=== PATIENT | male | born 1950 | race Caucasian/White ===

== ENCOUNTER 2025-04-30 14:04 | Outpatient (AMB) | payer MEDICARE, SELFPAY ==
--- NOTE | 2025-04-30 14:06 | A.OFFVIS_ITS ---
Vital Signs 04/30/25 14:07 Height 6 ft 1 in Weight 222 lb 10.67 oz BMI 29.4 BP 114/68 Blood Pressure Location Rt brachial Position Sitting Pulse 67 Pulse Source Pulse Oximeter Pulse Oximetry (%) 96 Oxygen Delivery Method Room Air Intake Visit Reasons: Hypercalcemia Intake Note: New patient present today for Hypercalcemia. Rustic Fence Builder Required: No Accompanied by: Self / Same As Patient Allergies No Known Allergies Allergy (Verified 04/30/25 14:11) Medication List - Last Reconciled 04/30/25 by Tim Chaves MD amlodipine 5 mg PO DAILY aspirin 81 mg PO DAILY levothyroxine 137 mcg PO DAILY lisinopril 10 mg PO DAILY mecobalamin (vitamin B12) 1,000 mcg PO DAILY oxycodone 5 mg PO Q6H PRN rosuvastatin 40 mg PO DAILY HPI Comments Details: 74 YO M who is seen in consultation at the request of PCP for PTH- mediated Hypercalcemia. First noted to have high calcium 3 mos ago . Not Currently using Calcium supplement .Not Takes of Vitamin D daily. Not Currently using HCTZ. Kidney stones: No Osteoporosis: No History of Mcdade use: No Biotin use: No Family history of high calcium or kidney stones: No Renal imaging: No DXA:2 yrs ago- no osteoporosis Labs: [facility] Medical History (Updated 04/30/25 @ 14:10 by Tim Chaves MD) Hypercalcemia Surgical History (Updated 04/30/25 @ 14:14 by ANASTACIA Whitney) Hx of coronary artery bypass graft Family History (Updated 04/30/25 @ 14:13 by ANASTACIA Whitney) Father No problems noted. Mother Heart disease Social History (Updated 04/30/25 @ 14:12 by ANASTACIA Whitney) Alcohol intake: current Alcohol intake frequency: holidays/special occasions only Patient Tobacco Use Status: Never used Tobacco Physical Exam Vital Signs: Last Vital Signs Pulse 67 04/30/25 14:07 BP 114/68 12/22/25 14:07 Pulse Ox 96 04/30/25 14:07 Oxygen Delivery Method Room Air 04/30/25 14:07 BMI result Body Mass Index 29.4 There are no Cushingoid features. Neck exam shows nl thyroid about 15 gms. Lungs CTA. Heart S1 S2 Reg R/R -MRG. Abdomina exam benign . Muscle strength 5/5 proximally. No hirsuitism present. No striae present. Skin exam without lesion Assessment & Plan Assessment & Plan (1) Hypercalcemia: Code(s): E83.52 - Hypercalcemia Category: Medical Plan: This 74-year-old white male with a history of hypercalcemia PTH-mediated most likely due to primary hyperparathyroidism. Unlikely to be FHH. We will check 24 hour urine for calcium and creatinine along with serum calcium, albumin, 25- D and creatinine to rule out FHH. Assuming consistent with primary hyperparathyroidism, we will talk with the patient about potential parathyroidectomy considering degree of hypercalcemia. Referral made to Dr. Hernandez for possible parathyroidectomy the patient returned after appointment for follow up visit Orders: Orders Creatinine, 24 Hr Group 4 Weeks E83.52 - Hypercalcemia Calcium 4 Weeks E83.52 - Hypercalcemia Vitamin D 25-OH Total 4 Weeks E83.52 - Hypercalcemia Calcium, 24 Hr Ur 4 Weeks E83.52 - Hypercalcemia Albumin Level 4 Weeks E83.52 - Hypercalcemia Parathyroid Hormone Intact 4 Weeks E83.52 - Hypercalcemia Referrals General Surgery Referral E83.52 - Hypercalcemia Coding Level of Care Code New Pt Level 4 (41652) Diagnoses Hypercalcemia E83.52
[2025-04-30 14:07] VITALS: BP 114/68; PULSE 67; O2SAT 96; BMI 29.4
--- OUTSIDE RECORDS SUMMARY | 2025-04-30 17:31 | XMS_ITS | Encounter Summary ---
Author Organization [facility] Address [address] [place] [address] Phone Care Team Providers Care Parts Facilitator Name Role Phone Len Dinh MD Primary Care Provider [phone] Len Dinh MD Primary Care Provider [phone] Len Dinh MD Primary Care Provider [phone] Encounter Details Date Type Department Care Team (Latest Contact Info) Description 07/12/2017 Transcribe Orders [facility] Non-Invasic Cardiology [address] [place] [address] Daniel Laughlin MD [address] [place] [address] [email or web address] History of coronary artery bypass graft (Primary Dx) Social History Tobacco Use Types Packs/Day Years Used Date Smoking Tobacco: Never Assessed Sex and Gender Information Value Date Recorded Sex Assigned at Not on file Legal Sex Male 10:02 PM EDT Gender Identity Choose not to disclose 9:38 AM EST Sexual Orientation Choose not to disclose 2017 9:38 AM EST documented as of this encounter Plan of Treatment Upcoming Encounters Date Type Department Care Team (Late st Contact Info) Description 05/21/2025 8:00 AM EST Office Visit [facility] [address] [place] [address] 3rd Floor, [address] [place] [address] Bj Luis MD [address], [address] [place] [address] [email or web address] documented as of this encounter Results * ECG 12-LEAD (07/12/2017 10:37 AM EST) Ventricular Rate EKG/MIN 69 BPM [facility] Atrial Rate 69 BPM [facility] SD Interval 170 ms [facility] QRS Duration 78 ms [facility] QT Interval 370 ms [facility] QTC Interval 396 ms [facility] P [place] 21 degrees [facility] R Wave [place] 64 degrees [facility] T Wave [place] 200 degrees [facility] 07/12/2017 10:3 7 AM EST 07/12/2017 1:39 PM EST Narrative [facility] - 07/12/2017 1:39 PM EST Sinus rhythm with occasional Premature ventricular complexes T wave abnormality, consider anterolateral ischemia Abnormal ECG When compared with ECG of 29-MAR-2017 16:17, T wave inversion now evident in Inferior leads T wave inversion now evident in Anterolateral leads Confirmed by ALBERT BENOIT MD ([id number]) on 07/12/2017 1:39:49 PM us Daniel Laughlin MD ECG ORDERABLES Final Res ult [facility] documented in this encounter Visit Diagnoses Diagnosis History of coronary artery bypass graft Postsurgical aortocoronary bypass status History of coronary artery bypass graft- Primary Postsurgical aortocoronary bypass status documented in this encounter Care Teams Parts Facilitator Relationship Specialty Start Date End Date Len Dinh MD PCP - General Internal Medicine 04/09/17 11/14/20 Len Dinh MD PCP - General Internal Medicine 11/15/20 02/07/23 Len Dinh MD [address] [place] [phone] [email or web address] PCP - General Internal Medicine 02/08/23 documented as of this encounter Additional Source Comments The information contained in this document represents components of the legal health record. It is not the complete legal health record.[facility]
--- OUTSIDE RECORDS SUMMARY | 2025-04-30 17:31 | XMS_ITS | Encounter Summary ---
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, unspecified vessel or lesion type, unspecified whether [place] or transplanted heart (Primary Dx) Social History Tobacco Use Types Packs/Day Years Used Date Smoking Tobacco: Never Assessed Sex and Gender Information Value Date Recorded Sex Assigned at Not on file Legal Sex Male 10:02 PM EDT Gender Identity Choose not to disclose 8 9:38 AM EST Sexual Orientation Choose not to disclose 2017 9:38 AM EST documented as of this encounter Plan of Treatment Upcoming Encounters Date Type Department Care Team (Late st Contact Info) Description 05/21/2025 8:00 AM EST Office Visit [facility] [address], [address] [place] [address] Bj Luis MD [address] [facility], [address] [place] [address] [email or web address] documented as of this encounter Results * TTE COMPREHENSIVE (11/26/2017 1:18 PM EDT) Body Surface Area 2.27 m2 Anatomical Region Laterality Modality Heart Ultrasound us Provider Not In System PhD CV ECHO ORDERABLES Fi nal Result documented in this encounter Visit Diagnoses Diagnosis 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, unspecified vessel or lesion type, unspecified whether [place] or transplanted heart- Primary documented in this encounter Care Teams Steel Construction Worker Relationship Specialty Start Date End Date Len Dinh MD [email or web address] PCP - General Internal Medicine 04/09/17 11/14/20 Len Dinh MD [email or web address] PCP - General Internal Medicine 11/15/20 02/07/23 Len Dinh MD [address] [place] [phone] [email or web address] PCP - General Internal Medicine 02/08/23 documented as of this encounter Additional Source Comments The information contained in this document represents components of the legal health record. It is not the complete legal health record.[facility]
--- OUTSIDE RECORDS SUMMARY | 2025-04-30 17:31 | XMS_ITS | Data Portability ---
Author Organization [place] [facility], Allergy Address [address] [address] Care Team Providers Care Lunch Counter Manager Name Role Phone SOFI DIETZ Referring Provider Assessment Encounter Date Assessment Date Assessment LastModified by Organization Details LastModified Time 01/12/2024 01/12/2024 On examination today there is a 2cm palpable mass at the tail of the left parotid gland. It is firm, but not tender. Overlying skin is normal. Case reviewed with . At this time the patient is not eager to proceed with surgery. We will plan on observation for now. He will see again in three months. Hopefully the inflammation will continue to settle down with time. If he experiences worsening swelling or pain he will call the office for a more urgent evaluation. [email or web address] Not available 01/12/2024 14:36:20 Plan of Treatment Reminders Order Date Submit Date Provider Last Modified By Organization Details Last Modified Time Details Appointments None recorded. Lab None recorded. Referral None recorded. Procedures None recorded. Surgeries None recorded. Imaging None recorded. Medication Orders prednisone 10 mg tablet 2023 024 [facility]/Pharmacy #[id number], [address] [place], [address], 14:16:25 amoxicillin 875 mg-potassiu m clavulanate 125 mg tablet 2023 024 [facility]/Pharmacy #[id number], [address] [place], [address], 13:56:53 Patient TargetsNo targets recorded. Patient InstructionsNo instructions recorded. Reason for Referral None Reported. Results Created Date Observation Date Name Description Value Unit Range Abnormal Flag Note LastModifiedBy Organization Detail LastModifiedTime 11/30/19 24 10/27/2023 US, neck, soft tissu e No observ ation record ed. [email or web address] Not Available 11/08 14:32:37 11/30/19 24 11/28/2023 CT, neck, soft tissu e, w/ contr ast No observ ation record ed. [email or web address] Not Available 11/08 14:36:48 12/07/19 24 11/05/2023 fine needl e aspir ation , ultra sound guide d, neck mass (PROC ) No observ ation record ed. [email or web address] Not Available 11/09 16:26:26 Result Notes None recorded. 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 Active 2023 DESIREE Iglesias MD [address] [place] [address], [phone], [facility] 4 14:05:04 Cervical lymphadenopath y 901512168 Active 2023 DESIREE Iglesias MD [address] [place] [address], [phone], [facility] 4 14:05:11 Abscess of parotid gland 572613510 Active 2023 DESIREE Iglesias MD [address] [place] [address], [phone], [facility] [place] 4 14:12:25 Problem Notes None recorded. Procedures Surgical History Date Name Laterality Status Provider Name and Address Organization Details Recorded Time 11/30/2023 FFL_RE completed DESIREE ALLEN MD [address] [place] [address], [phone], [facility] 11/30/2023 14:03:53 Imaging Results None recorded. Procedure Notes None recorded. Medical Equipment None Reported. Allergies No known drug allergies Medications Name Sig Start Date Stop Date Status Note LastModified by Organization Details LastModified Time prednisone 10 mg tablet TAKE 4 TABS BY MOUTH FOR 3 DAYS THEN 2 TABS DAILY FOR 3 DAYS THEN 1 TAB DAILY FOR 3 DAYS THEN STOP active Not Available Not Available No t Available lisinopril 20 mg tablet TAKE 1 TABLET BY MOUTH EVERY DAY active Not Available Not Available No t Available penicillin V potassium 500 mg tablet TAKE 1 TABLET BY MOUTH TWICE A DAY FOR 10 DAYS active Not Available Not Available No t Available oxycodone-a cetaminophe n 5 mg-325 mg tablet TAKE 1 TABLET BY MOUTH TWICE A DAY NEEDED FOR 7 DAYS active Not Available Not Available No t Available amlodipine 10 mg tablet TAKE 1 TABLET BY MOUTH EVERY DAY active Not Available Not Available No t Available levothyroxi ne 125 mcg tablet TAKE 1 TABLET BY MOUTH EVERY DAY active Not Available Not Available No t Available levothyroxi ne 150 mcg tablet TAKE 1 TABLET BY MOUTH EVERY DAY 01/11 completed Not Available Not Available Not Available gabapentin 300 mg capsule TAKE 1 CAPSULE BY MOUTH THREE TIMES A DAY FOR 90 DAYS active Not Available Not Available No t Available albuterol sulfate HFA 90 mcg/actuati on aerosol inhaler INHALE 2 PUFFS BY MOUTH 4 TIMES A DAY active Not Available Not Available No t Available clotrimazol e 1 % topical cream APPLY TO AFFECTED AREA AND SURROUNDI NG AREA TWICE A DAY IN THE MORNING AND IN THE EVENING active Not Available Not Available No t Available amoxicillin 875 mg-potassiu m clavulanate 125 mg tablet TAKE 1 TABLET BY MOUTH EVERY 12 HOURS 01/11 completed Not Available Not Available Not Available neomycin-po lymyxin-hyd rocort 3.5 mg-10,000 unit/mL-1 % ear drops,susp INSTILL 4 DROPS INTO AFFECTED EAR(S) 3 TIMES A DAY FOR 7 DAYS active Not Available Not Available No t Available rosuvastati n 40 mg tablet TAKE 1 TABLET BY MOUTH EVERY DAY active Not Available Not Available No t Available Vitals Date Recorded Body height Body mass index (BMI) Body weight Provider Name and Address Organization Details Last Updated DateTime 10/13/2024 185.42 cm 29.7 kg/m2 524902.28 g [place] [facility] 10/13/2024 07:55:41 Date Recorded Body height Body mass index (BMI) Body weight Provider Name and Address Organization Details Last Updated DateTime 11/30/2023 185.42 cm 29.8 kg/m2 312832.88 g [place] [facility] 11/30/2023 13:24:03 Date Recorded Body height Body mass index (BMI) Body weight Provider Name and Address Organization Details Last Updated DateTime 12/03/2023 185.42 cm 29.8 kg/m2 681219.88 nitish [place] [facility] 12/03/2023 10:22:45 Date Recorded Body height Body mass index (BMI) Body weight Provider Name and Address Organization Details Last Updated DateTime 01/12/2024 185.42 cm 29.7 kg/m2 642110.28 nitish Romanantonio [facility] 01/12/2024 13:56:40 Date Recorded Body height Body mass index (BMI) Body weight Provider Name and Address Organization Details Last Updated DateTime 04/10/2024 185.42 cm 29.7 kg/m2 189568.28 nitish Van Vallejo [facility] 04/10/2024 08:18:41 Social History None recorded. Functional Status None recorded. Mental Status None recorded. Family History Nothing Reported. Medical History No medical history recorded. 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 I will try to cool off with abx and prednisone and then reassess. Cervical lymphadenopathy 614995338 R59.0 He may have parotid adenopathy adjacent or a 2nd tumor. Abscess of parotid gland 699577824 K11.3 His Warthin's tumor is inflamed. He has not had a trial of abx and prednisone . I recommend a trial of abx and prednisone . If he doesn't improve I would plan an aspiration . I would like to reassess it when less inflamed. [id number] DESIREE ALLEN MD [facility] on [address] [place] [address], [place] [address] 12/03/2023 10:15:20 12/03/2023 13:57:32 Benign neoplasm of parotid gland 44356018 D11.0 clinically improving. continue abx and prednisone . Cervical lymphadenopathy 513669418 R59.0 He may have parotid adenopathy adjacent or a 2nd tumor. Abscess of parotid gland 380017228 K11.3 improving. 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 We again discussed surgery vs. observatio n and he prefers observatio n. On exam it is small and seems to have behavior consistent with a Warthin's tumor. So we will continue to observe. I asked them to call if it grows or becomes painful. [id number] DESIREE ALLEN MD [facility] on [address] [place] [address] [place] [address] 10/13/2024 07:50:58 10/13/2024 08:13:10 Benign neoplasm of parotid gland 36449126 D11.0 I can no longer palpate a tumor. I expect it is still present, however, it is collapsed. I asked him to call me if he develops any swelling. We discussed the option of interval imaging to assess however we agreed on observatio n and I will recheck and examine him in 6 months. He will call me in the interim if any changes. Health Concerns Section Related Observation LastModified by Organization Detai ls LastModified Time None Recorded Concern Status LastModified by Organization Details LastModified Time None Recorded Advance Directives Directive None Recorded Payers Insurance Date Sequence Insurance Name Policy Number Policy Desai Covered Member ID Desai Member ID Guarantor Name 10/13/2024 2 [facility] [id number] 01 Sumit Silverman [id number] Sumit Silverman 11/30/2023 1 [facility] Sumit Silverman [id number] Sumit Silverman 10/13/2024 1 MEDICARE B-[place]: [facility] [employer] Sumit Silverman [id number] Sumit Silverman Notes Date Note Type Note Provider Name and Address Organization Details Recorded Time 11/30/2023 text/html ROS as noted in the HPI He had bronchitis in the end of September. In the beginning of October he noted a left parotid mass. It got smaller but has since gotten bigger. He has not been on abx. His mass has enlarged and become painful. The pain worsened last about 4-5 days ago. He is taking ibuprofen. Quit smoking [place] 1993. CT neck with contrast 11/28/23 showed a 3.2x2.7 complex lesion within the left parotid with peripheral enhancement. An additional 1.8x1.1 cm lesion along eh superior left parotid was also noted abutting the mandibular condyle. Had an FNA which was consistent with a Warthin's tumor. He has had chills. DESIREE ALLEN MD [address] [place] [address], [phone], [facility] 11/30/2023 14:16:52 12/03/2023 text/html ROS as noted in the HPI He had bronchitis in the end of September. In the beginning of October he noted a left parotid mass. It got smaller but has since gotten bigger. He has not been on abx. His mass has enlarged and become painful. The pain worsened last about 4-5 days ago. He is taking ibuprofen. Quit smoking [place] 1993. CT neck with contrast 11/28/23 showed a 3.2x2.7 complex lesion within the left parotid with peripheral enhancement. An additional 1.8x1.1 cm lesion along eh superior left parotid was also noted abutting the mandibular condyle. Had an FNA which was consistent with a Warthin's tumor. He has had chills. Since the last visit the mass is slightly less painful. DESIREE ALLEN MD [address] [facility],[address], [address], [place] - [facility] 12/03/2023 12:59:54 01/12/2024 text/html ROS as noted in the [facility] 73 year old male presents today for follow up for a left parotid mass.He was seen by about six weeks ago. He was treated with antibiotics and prednisone. At his follow up three days later he was improving. He continues to report that the swelling has decreased. There is no longer any pain. Past visit history: In the beginning of October he noted a left parotid mass. It got smaller but has since gotten bigger. He has not been on abx. His mass has enlarged and become painful. The pain worsened last about 4-5 days ago. He is taking ibuprofen. Quit smoking [place] 1993. CT neck with contrast 11/28/23 showed a 3.2x2.7 complex lesion within the left parotid with peripheral enhancement. An additional 1.8x1.1 cm lesion along eh superior left parotid was also noted abutting the mandibular condyle. Had an FNA which was consistent with a Warthin's tumor. DESIREE ALLEN MD [address] [facility],[address], [address], [facility] - [facility] 01/13/2024 08:46:07 04/10/2024 text/html ROS as noted in the [facility] 73 year old male presents today for follow up for a left parotid mass. It became inflamed/infected after an FNA in November. It resolved with antibiotics and prednisone. He reports the mass is much smaller now but may have increased in size since it subsided. Quit smoking in 1993. CT neck with contrast 11/28/23 showed a 3.2x2.7 complex lesion within the left parotid with peripheral enhancement. An additional 1.8x1.1 cm lesion along eh superior left parotid was also noted abutting the mandibular condyle. Had an FNA which was consistent with a Warthin's tumor. DESIREE ALLEN MD [facility] [place] [address], [address], [place] - [facility] 04/10/2024 08:37:14 10/13/2024 text/html ROS as noted in the HPI 73 year old male presents today for follow up for a left parotid mass. It became inflamed/infected after an FNA in November 2023. Quit smoking [place] 1993. CT neck with contrast 11/28/23 showed a 3.2x2.7 complex lesion within the left parotid with peripheral enhancement. An additional 1.8x1.1 cm lesion along eh superior left parotid was also noted abutting the mandibular condyle. Had an FNA which was consistent with a Warthin's tumor. Since the last visit (last April after the last visit) it began draining spontaneously. His expressed a lot of liquid. Now he can no longer palpate it. Denies pain. DESIREE ALLEN MD [address] [place] [address], [place], [phone], [place] - [facility] 10/13/2024 08:14:57
--- OUTSIDE RECORDS SUMMARY | 2025-04-30 17:31 | XMS_ITS | Encounter Summary ---
Author Organization [facility] Address [address] [place] [address] Phone Care Team Providers Care Weatherization Installer Name Role Phone Len Dinh MD Primary Care Provider [phone] Len Dinh MD Primary Care Provider [phone] Len Dinh MD Primary Care Provider [phone] Reason for Referral * Consultation (Elective) - Closed Specialty Diagnoses / Procedures Referred By Contac t Referred To Contact Cardiac Rehabilitation Diagnoses History of coronary artery bypass graft x 3 Yary Neal NP [address] [place] [address] Phone: tel: fax: [facility] [address] [place] [address] Phone: tel: Referral ID Status Reason Start Date Expiration Date Visits Re quested Visits Authorized [id number] Closed 06/29/2017 06/29/2018 99 99 Encounter Details Date Type Department Care Team (Late st Contact Info) Description 06/29/2017 Transcribe Orders Virtual Department [address] [place] [address] Yary Neal NP [address] [place] [address] History of coronary artery bypass graft x 3 (Primary Dx) Social History Tobacco Use Types [...] Description 05/21/2025 8:00 AM EST Office Visit [facility] [address] Floor, [address] [place] [address] Bj Luis MD [address], [address] [place] [address] [email or web address] Scheduled Referrals Name Type Priority Associated Diagnoses Order Schedule Ambulatory referral to [facility] Cardiac Rehab Outpatient Referral Routine History of coronary artery bypass graft x 3 Ordered: 06/29/2017 documented as of this encounter Visit Diagnoses Diagnosis History of coronary artery bypass graft x 3- Primary documented in this encounter Care Teams Weatherization Installer Relationship Specialty Start Date End Date Len Dinh MD [email or web address] PCP - General Internal Medicine 04/09/17 11/14/20 Len Dinh MD [email or web address] PCP - General Internal Medicine 11/15/20 02/07/23 Len Dinh MD [address] [place] [phone] [email or web address] PCP - General Internal Medicine 02/08/23 documented as of this encounter Additional Source Comments The information contained in this document represents components of the legal health record. It is not the complete legal health record.[facility]
--- OUTSIDE RECORDS SUMMARY | 2025-04-30 17:31 | XMS_ITS | Clinical Summary ---
Author Organization [facility] Address [address] [place] [address] Phone Care Team Providers Care Auto Suspension And Steering Mechanic Name Role Phone Len Dinh MD Primary Care Provider [phone] Allergies No known active allergies Medications aspirin 81 mg chewable tablet Acti ve rosuvastatin (CRESTOR) 40 MG tablet Take 40 mg by mouth daily. Active levothyroxine (SYNTHROID, LEVOTHROID) 150 MCG tablet Take 137 mcg by mouth daily. 3 11/02/2018 Active nitroglycerin (NITROSTAT) 0.[address] 1 TABLET UNDER THE TONGUE NEEDED AT FIRST SIGN OF CHEST PAIN. SEPTEMBER REPEAT X 2 CALL 911 05/21/2020 Active acetaminophen (TYLENOL) 500 MG tablet Take 1,000 mg by mouth every 6 (six) hours as needed. Active amLODIPine (NORVASC) 10 MG tabletIndicatio ns:Medication refill TAKE 1 TABLET BY MOUTH EVERY DAY 90 tablet 3 07/09/2021 Active oxyCODONE-aceta minophen (PERCOCET) 5-325 mg per tablet Take 1 tablet by mouth 2 (two) times a day. 09/11/2022 Active lisinopril (PRINIVIL,ZESTR IL) 20 MG tablet Take 20 mg by mouth every morning. 08/15/2023 Active albuterol 90 mcg/actuation inhaler INHALE 2 PUFFS BY MOUTH 4 TIMES A DAY Active gabapentin (NEURONTIN) 300 MG capsule TAKE 1 CAPSULE BY MOUTH THREE TIMES A DAY FOR 90 DAYS Active Active Problems Problem Noted Date Diagnosed Date Mixed hyperlipidemia 10/12/2022 Assessment & Plan (11/17/2024 9:29 AM EDT): Continue rosuvastatin 40 mg daily. Assessment & Plan (09/24/2023 7:54 AM EDT): Continue rosuvastatin 40 mg daily. Assessment & Plan (10/12/2022 3:51 PM EDT): He will continue to take his Crestor. He will have a lipid panel drawn before his next follow-up. Atherosclerosis of [place] ronary artery of [place] heart without angina pectoris 08/06/2017 Assessment & Plan (11/17/2024 9:28 AM EDT): Continues to be asymptomatic. We will continue to optimize cardiac risk factors. He will remain on aspirin 81 mg daily lifelong, amlodipine 10 mg daily, lisinopril 20 mg daily and rosuvastatin 40 mg daily. SBP goal less than 130/80. LDL goal less than 55 mg/dL. PCP is following lipid panel. He is encouraged follow heart healthy diet including low-sodium and exercise. Assessment & Plan (09/24/2023 7:54 AM EDT): He reports he is asymptomatic from her coronary standpoint. He was noted to be bradycardic in the 40s during one of his visits and his metoprolol was reduced to metoprolol 25 mg daily. He will remain out of the medications aspirin milligrams daily, amlodipine 20 mg daily, lisinopril 10 mg daily. Will continue to optimize cardiac risk factors. He does report fatigue but he contributes this to his arthritis. Is unclear if PCP is following lipid panel however did order lipid panel today in case his PCP is not monitoring his cholesterol. He is on rosuvastatin 40 mg daily which she will continue. Assessment & Plan (02/08/2023 1:34 PM EDT): Continues to be asymptomatic from coronary artery standpoint. His bradycardia has improved on the reduced dose of metoprolol. His heart rate today is 80 bpm. He will continue taking his metoprolol 25 mg daily. He is also on aspirin 81 mg daily, simvastatin 40 mg daily. [facility] his [facility]. Assessment & Plan (10/12/2022 3:50 PM EDT): History of coronary artery disease and had bypass surgery in 2018. He is feeling well with no symptoms which are suggestive of ischemia. We will continue to optimize his risk factors. Blood pressure in the office today is adequately controlled. Of note, his EKG shows sinus bradycardia with a heart rate of 47. I suggested that he lower his metoprolol dosing. I prescribed metoprolol succinate 25 mg to be taken once daily. I would like to follow-up with him in 3 months to check on his blood pressure. Assessment & Plan (07/15/2021 9:47 AM EST): Denies any symptoms concerning for angina and heart failure today. We will continue to optimize his cardiovascular risk factors and to monitor for disease progression. No changes to his current cardiac regimen at this time. Assessment & Plan (05/23/2021 2:59 PM EST): Stenting to the LAD in 2004 and 2008, s/p CABG x3 who is here today for cardiac clearance. He denies any chest pain, shortness breath, potation, lightheadedness or syncopal spells. His exercise is pretty limited due to his ankle pain however he is able to walk more than 100 yards and climb stairs without chest pain or shortness of breath. He is an average risk patient for a low risk procedure per NSQIP. No further cardiac testing needed prior to surgery. Assessment & Plan (06/17/2020 2:31 PM EST): He has a history for coronary artery disease status post CABG x3, prior stenting of the LAD in 2004 and 2008. Is unable to locate recent lipid panel. We will also check his lipid panel along with a BMP today. He denies any current symptoms for CAD. Assessment & Plan (06/09/2019 12:26 PM EST): He is doing well no angina. I will have his last lipids but he was told it was good his LDL should be less than 70. Continue current medical therapy. If he needs ankle surgery done I am fine with him proceeding as planned. He remains intermediate risk but it is at most the low intermediate risk surgery. Assessment & Plan (05/27/2018 8:34 AM EST): Doing well now one year status post bypass surgery. No complaints of angina. I want his LDL checked and I want it less than 70. I put an order in for this. Otherwise I am happy with his medications at back and do some more regular exercise if he is walking daily. We talked about diet and weight loss. He will call me if he has any symptoms. I am happy to see him once a year. Assessment & Plan (11/26/2017 1:31 PM EDT): He is doing well since his bypass surgery. No angina and his ejection fraction is normal. Continue his regular activities. He is given a [facility] will have him check the lipids LDL goal should be less than 70 preferably less than 50. He will call us with the number of his mail order pharmacy so we can send in some refills. He will be on 25 mg twice a day. Assessment & Plan (08/06/2017 3:07 PM EDT): Stable, denies s/s of angina/CHF/arrhythmia. Doing well at cardiac rehab. --Cont ASA, Metoprolol 25 mg BID, and Crestor 40 mg daily. --Cont to check lipids periodically with PCP for goal LDL < 70. Hypertension 08/06/2017 Assessment & Plan (11/17/2024 9:28 AM EDT): Blood pressure is well-controlled today on current regimen no medication changes today. Assessment & Plan (09/24/2023 7:54 AM EDT): Blood pressure is controlled today 126/72. He is on amlodipine 10 mg daily, lisinopril 20 mg daily, Toprol 25 mg daily. He will continue his medication without change. He is encouraged follow heart healthy diet including low sodium and to continue exercising. Assessment & Plan (02/08/2023 1:34 PM EDT): His metoprolol was lowered during his last visit. He is tolerating this well with blood pressure well controlled less than 130/80. He is on amlodipine 10 mg daily, lisinopril 20 mg daily, Toprol 25 mg daily. He remains medications without change. He is encouraged to follow heart healthy diet including low sodium and to continue being active. Assessment & Plan (10/12/2022 3:50 PM EDT): See above plan. I have lowered his metoprolol for some bradycardia. I will have him follow-up in 3 months to check on his blood pressure. Assessment & Plan (07/15/2021 9:32 AM EST): Good control on current cardiac regimen. No changes indicated today. Patient advised to continue with low-salt diet and a active lifestyle. Monitor for extremes of highs and lows. Assessment & Plan (06/17/2020 2:30 PM EST): Initial blood pressure was recorded at 122/60. Patient describes checking blood pressures at home and has consistently gotten systolic blood pressures greater than 150. Blood pressure was rechecked for 148/100. He is on lisinopril 20 mg daily, metoprolol 50 mg twice daily. We will increase his lisinopril to 40 mg daily. He will come back for blood pressure check in 4 weeks. We also get a BMP today. Blood pressure goal systolic less 130/80. Assessment & Plan (08/06/2017 3:10 PM EDT): Elevated in the office today. Goal SBP < 130. Stable renal function and electrolytes. --Will resume Lisinopril 5 mg daily (previously on 10 mg) --Recommend periodic assessment of renal function and lytes with PCP --Will continue to monitor and reassess at next scheduled f/u. S/P CABG x 3 08/06/2017 Assessment & Plan (08/06/2017 3:08 PM EDT): EKG in the office today shows NSR HR 70 and diffuse TWI/F unchanged from last EKG, no acute ischemic changes. Ok to go back to work, no heavy lifting, nothing more than 20-30 lbs. --Will order echocardiogram 3 months s/p CABG --Keep scheduled f/u with Dr. San. Family History Medical History Relation Comments Heart attack Mother Relation Status Comments Mother Social History Tobacco Use Types Packs/Day Years Used Date Smoking Tobacco: Former Smokeless Tobacco: Never Tobacco Cessation:Counseling Given: Not Answered Alcohol Use Standard Drinks/Week Comments Yes 0 (1 standard drink = 0.6 oz pur e alcohol) Education Answer Date Recorded Are you interested in more education? Not on dheeraj e 09/04/2022 Are you concerned about learning? Not on file 09/04/2022 No 09/04/2022 No 09/04/2022 Digital Access Answer Date Recorded No 10/03/2022 No 10/03/2022 Reliable internet access at home? Not on file 10/03/2022 Device with a working camera? Not on file Intimate Partner Violence Answer Date R ecorded Are you denied basic needs s uch as food, clothing, or medical care? No 11/28/2023 In the past 12 months have y ou been in a relationship with a person who hurts, threatens, or tries to control you? No 11/28/2023 Are you denied basic needs s uch as food, clothing, or medical care? No 11/28/2023 In the past 12 months have y ou been in a relationship with a person who hurts, threatens, or tries to control you? No 11/28/2023 Sex and Gender Information Value Date Recorded Sex Assigned at Not on file Legal Sex Male 10:02 PM EDT Gender Identity Choose not to disclose 8 9:38 AM EST Sexual Orientation Choose not to disclose 2017 9:38 AM EST Last Filed Vital Signs Vital Sign Reading Time Taken Comments Blood Pressure 116/68 11/17/2024 9:01 AM EDT Pulse 57 11/17/2024 9:01 AM EDT Temperature 36.7 C (98.1 F) 11/28/2023 11:26 PM EDT Respiratory Rate 16 11/28/2023 11:26 PM EDT Oxygen Saturation 95% 11/17/2024 9:01 AM EDT Inhaled Oxygen Concentration - - Weight 102.1 kg (225 lb) 11/17/2024 9:01 AM EDT Height 185.4 cm (6' 0.99 ) 11/17/2024 9:01 AM ED T Body Mass Index 29.69 11/17/2024 9:01 AM EDT Plan of Treatment Upcoming Encounters Date Type Department Care Team (Late st Contact Info) Description 05/21/2025 8:00 AM EST Office Visit [facility] [address], [address] [place] [address] Bj Luis MD [address], [address] [place] [address] [email or web address] Due Date Last Done Comments TSH LEVEL 1949 DEPRESSION SCREENING 1961 SMOKING Hx and SMOKELESS TOBACCO SCREENING 1962 HEPATITIS C SCREENING 10/29/1967 COLOGUARD 1994 FIT TEST 1994 FOBT 1994 SIGMOIDOSCOPY 1994 VIRTUAL COLONOSCOPY 1994 ZOSTER VACCINES (2 of 3) 05/19/2013 03/24/2013 CREATININE LEVEL 06/17/2021 06/17/2020, 03/29/2017 POTASSIUM LEVEL 06/17/2021 06/17/2020, 03/29/2017 RSV VACCINE (1 - 1-dose 75+ series) 2024 INFLUENZA VACCINE (#1) 2024 , 03/08/2020, 02/27/2019, Additional history exists COVID-19 VACCINE ( season) 2025 03/21/2021, 07/28/2020, 07/20/2020, Additional history exists BLOOD PRESSURE 05/20/2025 11/17/2024 COLONOSCOPY 06/01/2027 06/22/2022 COLORECTAL CANCER SCREENING 06/01/2027 Adult Td,Tdap Booster 12/21/2029 12/22/2019 , 03/24/2013, 10/09/2007 PNEUMOCOCCAL VACCINES (50+ years) Completed 12/22/2019, 12/02/2016, 10/02/2015, Additional history exists HEPATITIS A VACCINES Aged Out No long er eligible based on patient's age to complete this topic HIB VACCINES Aged Out No longer eligi ble based on patient's age to complete this topic MENINGOCOCCAL VACCINES (ACWY) Aged Out No longer eligible based on patient's age to complete this topic MENINGOCOCCAL VACCINES (B) Aged Out N o longer eligible based on patient's age to complete this topic Medical Devices Not on file Procedures Procedure Name Priority Date/Time Associated Diagnosis Comments COLONOSCOPY FOR RESULT ENTRY ONLY Routine 06/22/2022 BASIC METABOLIC PANEL (BMP) Routine 06/17/2020 2:18 PM EST Essential hypertension from Last 3 Months or Most Recently Relevant to Health Maintenance Results * COLONOSCOPY FOR RESULT ENTRY ONLY (06/22/2022) Colonoscopy External us Historical Provider MD HEALTH MAINTENANCE Final Result * (ABNORMAL) Basic metabolic panel (06/17/2020 2:18 PM EST) SODIUM 142 133 - 146 mmol/L [facility] CHLORIDE 106 96 - 108 mmol/L [facility] POTASSIUM 4.8 3.3 - 5.1 mmol/L [facility] CO2 29 21 - 35 mmol/L [facility] BUN 16 6 - 19 mg/dL [facility] CREATININE 0.90 0.5 - 1.5 mg/dL [facility] GLUCOSE 110(H) 70 - 99 mg/dL [facility] CALCIUM 10.9(H) 8.4 - 10.3 mg/dL [facility] EGFR 86 >59 mL/min/1.7 3m2 [facility] Comment:Estimated glomerular filtration rate calculated using the CKD-EPI equation. ANION GAP 12 10 - 20 mmol/L [facility] Blood 06/17/2020 2:18 PM EST 06/17/2020 2:20 PM EST us Richelle Chao DNP LAB BLOOD BKR ORDERABLES F inal Result [facility] [address] [place] [address] from Last 3 Months or Most Recently Relevant to Health Maintenance Insurance MEDICARE PART A & B Member Subscriber Plan / Payer (Ef fective 2022-) Name:Sumit Silverman Member ID:[id number] Relation to Subscriber:Self Name:Brett Silvermany Subscriber ID:[id number] Payer ID:[id number] Group ID:Not on file Type:Medicare Address: [employer] [address] [place] [phone] [facility] MEDICARE SUPPLEMENT MEDICARE PART A & B [facility] MEDICARE SUPPLEMENT MEDICARE PART A & B MEDICARE SUPPLEMENT MEDICARE PART A & [place] [address] [place] [address] MEDICARE SUPPLEMENT MEDICARE PART A & B Member Subscriber Plan / Payer (Ef fective 2022-) Name:Sumit Silverman Member ID:[id number] Relation to Subscriber:Self Name:Sumit Silverman Subscriber ID:[id number] Payer ID:[id number] Group ID:Not on file Type:Medicare [facility] [id number] [facility] MEDICARE SUPPLEMENT MEDICARE PART A & B [facility] MEDICARE SUPPLEMENT Care Teams Auto Suspension And Steering Mechanic Relationship Specialty Start Date End Date Len Dinh MD [address] [place] [phone] [email or web address] PCP - General Internal Medicine 02/08/23 Additional Source Comments The information contained in this document represents components of the legal health record. It is not the complete legal health record.[facility]
--- OUTSIDE RECORDS SUMMARY | 2025-04-30 17:31 | XMS_ITS | Clinical Summary ---
Author Organization [facility] Address [address] [place] [address] Care Team Providers Care Mechanic General Operational Test Name Role Phone Len Dinh MD Primary Care Provider [phone] Daniel Marsh DO Unavailable [phone] Bam Lozano MD Unavailable [phone] Allergies No known active allergies Medications levothyroxine (SYNTHROID, LEVOTHROID) 50 MCG tablet Take 50 mcg by mouth every morning. Active metoPROLOL TARTRATE (LOPRESSOR) 50 MG tablet Take 50 mg by mouth 2 (two) times a day. Active lisinopril (PRINIVIL,ZeSTR IL) 40 MG tablet Take 40 mg by mouth every morning. Active rosuvastatin (CRESTOR) 40 MG tablet Take 40 mg by mouth every morning. Active amLODIPine (NORVASC) 10 MG tablet Take 10 mg by mouth every evening. Active cholecalciferol (VITAMIN D3) 1000 units capsule Take 1,000 Units by mouth 2 (two) times a day. Active acetaminophen (TYLENOL) 500 MG tablet Take 1,000 mg by mouth 4 times daily (every 6 hours) as needed for mild pain. Active nitroglycerin (NITROSTAT) 0.[address] 0.4 mg under the tongue every 5 (five) minutes as needed for chest pain. Active Active Problems Problem Noted Date Diagnosed Date Hypertension Coronary artery disease Hyperlipidemia Family History Medical History Relation Name Comments Alcohol abuse Brother 1 Diabetes Brother 2 Arthritis Brother 3 No Known Problems Daughter 1 No Known Problems Daughter 2 No Known Problems Father Heart attack Mother Heart disease Mother No Known Problems Son Relation Name Status Comments Brother 1 Brother 2 Brother 3 Alive Daughter 1 Alive Daughter 2 Alive Father Mother Son Alive Social History Tobacco Use Types Packs/Day Years Used Date Smoking Tobacco: Former Cigarettes 0.5 25 1 - 05/09/1993 Smokeless Tobacco: Never Alcohol Use Standard Drinks/Week Comments Yes 2 (1 standard drink = 0.6 oz pure alcohol) advised to stop 2 weeks prior to surgery Sex and Gender Information Value Date Recorded Sex Assigned at Not on file Legal Sex Male 12:42 PM EST Gender Identity Not on file Sexual Orientation Not on file Last Filed Vital Signs Vital Sign Reading Time Taken Comments Blood Pressure 110/67 06/06/2021 3:00 PM EST Pulse 60 06/06/2021 3:00 PM EST Temperature 36.1 C (97 F) 06/06/2021 1:40 PM EST Respiratory Rate 18 06/06/2021 3:00 PM EST Oxygen Saturation 95% 06/06/2021 3:00 PM EST Inhaled Oxygen Concentration - - Weight 103 kg (226 lb) 05/23/2021 7:46 AM EST Height 185.4 cm (6' 1 ) 05/23/2021 7:46 AM EST Body Mass Index 29.82 05/23/2021 7:46 AM EST Plan of Treatment Health Maintenance Due Date Last Done Comments Advance Care Planning 1950 Hepatitis C Virus Screening 1950 DTaP/Tdap/Td Vaccines (1 - Tdap) 1968 Pneumococcal Vaccines 50+ (1 of 1 - PCV) 10/29/1999 Zoster (Shingles) Vaccine (1 of 2) 10/29/1999 RSV Vaccine 50 years and old er and Patients (1 - 1-dose 75+ series) 2024 COVID-19 Vaccine ( - 2024-2 6 season) 2025 Hepatitis B Vaccines Aged Out No long er eligible based on patient's age to complete this topic Medical Devices Implanted Type Area Immigration Inspector Device Identifier Shelf Expiration Date Model / Serial / Lot Tn Plate Implanted:Qty : 1 on 06/06/2021 by Bam Lozano MD at [facility] Plate Right: Ankle [employer]NE [employer] - [id number] / / 4.0x55mm Screw Implanted:Qty : 1 on 06/06/2021 by Bam Lozano MD at [facility] Screw Right: Ankle [employer] - [id number] / / 7.0x80mm Screw Implanted:Qty : 2 on 06/06/2021 by Bam Lozano MD at [facility] Screw Right: Ankle [employer] - [id number] / / 7.0x95mm Screw Implanted:Qty : 1 on 06/06/2021 by Bam Lozano MD at [facility] Screw Right: Ankle [employer]NE [employer] - [id number] / / 3.5x30mm Nl Screw Implanted:Qty : 1 on 06/06/2021 by Bam Lozano MD at [facility] Screw Right: Ankle [employer] - [id number] / / 3.5x30mm Lock Screw Implanted:Qty : 3 on 06/06/2021 by Bam Lozano MD at [facility] Screw Right: Ankle [employer]NE [employer] - [id number] / / 3.5x38mm Nl Screw Implanted:Qty : 1 on 06/06/2021 by Bam Lozano MD at [facility] Screw Right: Ankle [employer]NE [employer] - [id number] / / 3.5x24mm Lock Screw Implanted:Qty : 1 on 06/06/2021 by Bam Lozano MD at [facility] Screw Right: Ankle [employer]NE [employer] - [id number] / / [id number] Staple Bone [id number] Fuseforce Hand 2mm Reamer Sterl - [id number] Implanted:Qty : 1 on 06/06/2021 by Bam Lozano MD at [facility] Staple Right: Ankle [employer] 10/29/2025 [id number] / / [id number] Kit Bone Graft 3cc Augment Injectable - [id number] Implanted:Qty : 1 on 06/06/2021 by Bam Lozano MD at [facility] Void Filler Right: Foot [employer] 09/06/2022 [id number] / / [id number] Filler Bone Void 5cc Dbx Algrf Putty Frzdr - [id number] Implanted:Qty : 1 on 06/06/2021 by Bam Lozano MD at [facility] Void Filler Right: Ankle [employer]PL[employer] FOU 02/04/2023 [id number] / [id number] / Bone Screw 3.5x34 Implanted:Qty : 1 on 06/06/2021 by Bam Lozano MD at [facility] Right: Ankle [employer]NE [employer] - [id number] / / Care Teams Mechanic General Operational Test Relationship Specialty Start Date End Date Len Dinh MD [address] [place] [phone] PCP - General Internal Medicine 05/14/21 Daniel Marsh DO [address] [place] [id number] Lining Layer Cardiovascular Disease 05/14/21 Bam Lozano MD [address] [place] [id number] Surgery, Orthopedic 05/16/21
--- OUTSIDE RECORDS SUMMARY | 2025-04-30 17:31 | XMS_ITS | Encounter Summary ---
Author Organization [facility] Address [address] [place] [address] Phone Care Team Providers Care Jelly Filter Tender Name Role Phone Len Dinh MD Primary Care Provider [phone] Len Dinh MD Primary Care Provider [phone] Len Dinh MD Primary Care Provider [phone] Encounter Details Date Type Department Care Team (Late st Contact Info) Description 04/09/2017 Ancillary Orders [facility] Non-Invasic Cardiology [address] [place] [address] Len Dinh MD [address] [place] [address] [email or web address] Chest pain, unspecified type Social History Tobacco Use Types Packs/Day Years [...] Description 05/21/2025 8:00 AM EST Office Visit [facility] [address] [place] [address] 3rd Floor, [address] [place] [address] Bj Luis MD 22 [facility], [address] [place], [place] [phone] [email or web address] documented as of this encounter Results * NC Stress Result for Nuclear Stress Test ([facility]) (04/09/2017 11:25 AM EST) Max BP Systolic 190 mmHg [facility] Max BP Diastolic 80 mmHg [facility] Max HR 137 BPM [facility] Resting HR 59 BPM [facility] Resting BP Systolic 150 mmHg [facility] Resting BP Diastolic 80 mmHg [facility] Peak METS 4.2 METS [facility] Peak HR 108 BPM [facility] Anatomical Region Laterality Modality Heart Other 04/09/2017 10:1 1 AM EST 04/09/2017 10:38 AM EST Narrative 04/09/2017 4:09 PM EST Stress Test Result The heart rate changed from 59 bpm at rest to 108 bpm at peak stress. The blood pressure changed from 150/80 mmHg at rest. The patient's functional capacity is 4.2 METS. Pt exercised for 5:01 minutes on a GILL protocol achieving 7 METS. Test terminated due to chest pain and dyspnea. Max heart rate 137 (89% MPHR). 1. Baseline EKG showed normal sinus rhythm. During exercise there were 2-3 mm horizontal to upsloping ST depressions in the inferolateral leads. EKGs back to baseline by 3 min into recovery. 2. Pt had 6/10 chest pain at peak exercise that resolved spontaneously by 4 minutes into recovery. 3. Normal BP response to exercise. Normal functional capacity for age. 4. Occasional PVCs and PACs throughout. Conclusion - abnormal stress test with EKG changes and chest pain concerning for ischemia. Nuclear images pending and will be reported separately. Dmitry Carlos FACILITY PLANNER with Dr Joshi us Len Dinh MD CV NM CARDIAC Final Result documented in this encounter Visit Diagnoses Diagnosis Chest pain, unspecified type Chest pain, unspecified type documented in this encounter Care Teams Jelly Filter Tender Relationship Specialty Start Date End Date Len Dinh MD [email or web address] PCP - General Internal Medicine 04/09/17 11/14/20 Len Dinh MD [email or web address] PCP - General Internal Medicine 11/15/20 02/07/23 Len Dinh MD [address] [place] [phone] [email or web address] PCP - General Internal Medicine 02/08/23 documented as of this encounter Additional Source Comments The information contained in this document represents components of the legal health record. It is not the complete legal health record.[facility]
--- OUTSIDE RECORDS SUMMARY | 2025-04-30 17:32 | XMS_ITS | Encounter Summary ---
Author Organization [facility] Address [address] [place] [address] Phone Care Team Providers Care Coding Validator Name Role Phone Len Dinh MD Primary Care Provider [phone] Len Dinh MD Primary Care Provider [phone] Len Dinh MD Primary Care Provider [phone] Encounter Details Date Type Department Care Team (Late st Contact Info) Description 04/09/2017 Ancillary Orders Virtual Department 30 [place] [address] Len Dinh MD 238 [place] [address] [email or web address] Social History Tobacco Use Types Packs/Day Years [...] Encounters Date Type Department Care Team (Late Contact Info) Description 05/21/2025 8:00 AM EST Office Visit [facility] [address] [place] [address] 3rd Floor, [address] [place] [address] Bj Luis MD 22 [facility] [place], [place] [facility] [address] [place] [address] [email or web address] documented as of this encounter Visit Diagnoses Not on filedocumented in this encounter Care Teams Coding Validator Relationship Specialty Start Date End Date Len Dinh MD [email or web address] PCP - General Internal Medicine 04/09/17 11/14/20 Len Dinh MD [email or web address] PCP - General Internal Medicine 11/15/20 02/07/23 Len Dinh MD [address] [place] [phone] [email or web address] PCP - General Internal Medicine 02/08/23 documented as of this encounter Additional Source Comments The information contained in this document represents components of the legal health record. It is not the complete legal health record.[facility]
--- OUTSIDE RECORDS SUMMARY | 2025-04-30 17:32 | XMS_ITS | Encounter Summary ---
Author Organization [facility] Address [address] [facility] [address] [place] [address] Phone Care Team Providers Care Courier Driver Name Role Phone Len Dinh MD Primary Care Provider [phone] Len Dinh MD Primary Care Provider [phone] Len Dinh MD Primary Care Provider [phone] Encounter Details Date Type Department Care Team (Late st Contact Info) Description 05/22/2020 Procedure Pass [facility], Ct Scan - [address] [address] Social History Tobacco Use Types Packs/Day Years Used Date Smoking Tobacco: Former Smokeless Tobacco: Never Alcohol Use Standard Drinks/Week Comments Yes 0 (1 standard drink = 0.6 oz pur e alcohol) Sex and Gender Information Value Date Recorded [...] Description 05/21/2025 8:00 AM EST Office Visit [facility] [address] [place] [address] 3rd Floor, [address] [place] [address] Bj Luis MD 22 [facility], [address] [place] [phone] documented as of this encounter Visit Diagnoses Not on filedocumented in this encounter Care Teams Courier Driver Relationship Specialty Start Date End Date Len Dinh MD [email or web address] PCP - General Internal Medicine 04/09/17 11/14/20 Len Dinh MD [email or web address] PCP - General Internal Medicine 11/15/20 02/07/23 Len Dinh MD [address] [place] [phone] [email or web address] PCP - General Internal Medicine 02/08/23 documented as of this encounter Additional Source Comments The information contained in this document represents components of the legal health record. It is not the complete legal health record.[facility]
--- OUTSIDE RECORDS SUMMARY | 2025-04-30 17:32 | XMS_ITS | Encounter Summary ---
Author Organization [facility] Address [address] [place] [address] Phone Care Team Providers Care Performance Improvement Analyst Name Role Phone Len Dinh MD Primary Care Provider [phone] Reason for Referral * MRI/CAT Scan - Closed Specialty Diagnoses / Procedures Referred By Contac t Referred To Contact Radiology Diagnoses Other abnormalities of gait and mobility Procedures CT Head Len Dinh MD [address] [place] [address] Phone: tel: fax: [email or web address] Referral ID Status Reason Start Date Expiration Date Visits Re quested Visits Authorized [id number] Closed 01/14/2024 01/13/2025 1 1 Encounter Details Date Type Department Care Team (Late st Contact Info) Description 01/14/2024 Transcribe Orders Virtual Department 30 [place] [address] Len Dinh MD [address] [place] [phone] [email or web address] Dysphagia, unspecified type (Primary Dx); Other abnormalities of gait and mobility Social History Tobacco Use Types Packs/Day Years [...] Description 05/21/2025 8:00 AM EST Office Visit [facility] [address] [place] [address] 3rd [facility], [address] [place] [address] Bj Luis MD [address] [place] [address] [email or web address] documented as of this encounter Results * FL (Speech) Video Swallow Study (04/03/2024 10:14 AM EST) Anatomical Region Laterality Modality Radio Fluoroscop y 04/03/2024 12:0 1 PM EST Impressions 04/03/2024 2:01 PM EST Laryngeal penetration with thin liquids without aspiration. Please refer to the clinical notes by the Speech Pathologist for detailed description of the Modified Swallow findings. FLUOROSCOPY TIME: 1 minute 14 seconds NUMBER OF IMAGES: [id number] Examination was performed by Doug LOJA, under direct supervision by Dr. Beena Wells. ATTESTATION: Beena Hicks as teaching physician, have reviewed the images for this case and if necessary edited the report originally created by Doug Peralta. Narrative 04/03/2024 2:01 PM EST FL MODIFIED BARIUM SWALLOW HISTORY:Dysphagia. COMPARISON:CT neck 11/28/2023. TECHNIQUE: Fluoroscopic assistance was provided for the speech pathologist during video swallow. The patient was observed in the lateral projection while being fed various consistencies of barium (thin liquids, applesauce, pudding and cracker). FINDINGS: The oral and pharyngeal stages of swallowing will be reported separately by the Department of Speech and Language Pathology. Laryngeal penetration with thin liquids without consuelo aspiration. No laryngeal penetration demonstrated with all other trialed barium consistencies. Cricopharyngeal bar is visualized without evidence of achalasia or a Zenker's diverticulum. No significant pharyngeal residue. Procedure Note Beena Wells MD - 04/03/2024 FL MODIFIED BARIUM SWALLOW HISTORY:Dysphagia. COMPARISON:CT neck 11/28/2023. TECHNIQUE: Fluoroscopic assistance was provided for the speech pathologist duringvideo swallow. The patient was observed in the lateral projection whilebeing fed various consistencies of barium (thin liquids, applesauce,pudding and cracker). FINDINGS: The oral and pharyngeal stages of swallowing will be reported separatelyby the Department of Speech and Language Pathology. Laryngeal penetration with thin liquids without consuelo aspiration. Nolaryngeal penetration demonstrated with all other trialed bariumconsistencies. Cricopharyngeal bar is visualized without evidence ofachalasia or a Zenker's diverticulum. No significant pharyngeal residue. IMPRESSION: Laryngeal penetration with thin liquids without aspiration. Please refer to the clinical notes by the Speech Pathologist for detaileddescription of the Modified Swallow findings. FLUOROSCOPY TIME: 1 minute 14 seconds NUMBER OF IMAGES: [id number] Examination was performed by Doug LOJA, under direct supervisionby Dr. Beena Wells. ATTESTATION: Beena Hicks as teaching physician, have reviewed theimages for this case and if necessary edited the report originally createdby Dogu Peralta. us Len Dinh MD IMG FL EXAMS Final Result * CT HEAD WITHOUT CONTRAST (03/03/2024 8:27 AM EDT) Anatomical Region Laterality Modality Head Computed Tomogra phy 03/03/2024 5:01 PM EDT Impressions 03/03/2024 5:06 PM EDT 1. No acute intracranial findings. Narrative 03/03/2024 5:[address] HEAD WITHOUT CONTRAST Referring clinician's provided indication for this examination in Epic: Outside Radiology Order; impairment of balance TECHNIQUE: Multidetector-row CT of the head was performed without intravenous contrast using tailored dose modulation techniques. Images were reconstructed in the axial, coronal, and sagittal planes. COMPARISON: None. FINDINGS: Brain Parenchyma: No midline shift, mass effect, parenchymal hemorrhage, or evidence of acute territorial infarct. There is a hypodensity in the left basal ganglia which may represent a large dilated perivascular space versus a chronic infarct. There are areas of hypodensity in the periventricular white matter, likely a manifestation of chronic small vessel disease. Ventricular System and Extra-Axial Spaces: There is mild generalized parenchymal volume loss. No hydrocephalus or midline shift. No extra-axial fluid collection. Osseous and Extracranial Structures: No significant paranasal sinus disease. No orbital abnormality. Bones and extracranial soft tissues are unremarkable. Procedure Note Xavi Martinez MD - 03/03/2024 CT HEAD WITHOUT CONTRAST Referring clinician's provided indication for this examination in Epic:Outside Radiology Order; impairment of balance TECHNIQUE: Multidetector-row CT of the head was performed withoutintravenous contrast using tailored dose modulation techniques. Imageswere reconstructed in the axial, coronal, and sagittal planes. COMPARISON: None. FINDINGS: Brain Parenchyma: No midline shift, mass effect, parenchymal hemorrhage,or evidence of acute territorial infarct. There is a hypodensity in theleft basal ganglia which may represent a large dilated perivascular spaceversus a chronic infarct. There are areas of hypodensity in theperiventricular white matter, likely a manifestation of chronic smallvessel disease. Ventricular System and Extra-Axial Spaces: There is mild generalizedparenchymal volume loss. No hydrocephalus or midline shift. No extra-axialfluid collection. Osseous and Extracranial Structures: No significant paranasal sinusdisease. No orbital abnormality. Bones and extracranial soft tissues areunremarkable. IMPRESSION: 1. No acute intracranial findings. Len Dinh MD IMG CT HEAD/NECK Final Result documented in this encounter Visit Diagnoses Diagnosis Dysphagia, unspecified type- Primary Other abnormalities of gait and mobility Other abnormalities of gait and mobility Dysphagia, unspecified type documented in this encounter Care Teams Performance Improvement Analyst Relationship Specialty Start Date End Date Len Dinh MD [address] [place] [phone] [email or web address] PCP - General Internal Medicine 02/08/23 documented as of this encounter Additional Source Comments The information contained in this document represents components of the legal health record. It is not the complete legal health record.[facility]
--- OUTSIDE RECORDS SUMMARY | 2025-04-30 17:32 | XMS_ITS | Encounter Summary ---
Author Organization [facility] Address [address] [place] [address] Phone Care Team Providers Care Health Technical Writer Name Role Phone Len Dinh MD Primary Care Provider [phone] Encounter Details Date Type Department Care Team (Late st Contact Info) Description 11/05/2023 Procedure Pass [facility] Interventional Radiology [address] [place] [address] Social History Tobacco Use Types Packs/Day Years [...] with a working camera? Not on file Sex and Gender Information Value Date Recorded [...] Description 05/21/2025 8:00 AM EST Office Visit [facility] [address] [facility] 3rd Floor, [address] [place] [address] Bj Luis MD 22 [facility], [address] [place] [address] [email or web address] documented as of this encounter Visit Diagnoses Not on filedocumented in this encounter Care Teams Health Technical Writer Relationship Specialty Start Date End Date Lne Dinh MD [address] [place] [phone] [email or web address] PCP - General Internal Medicine 02/08/23 documented as of this encounter Additional Source Comments The information contained in this document represents components of the legal health record. It is not the complete legal health record.[facility]
--- OUTSIDE RECORDS SUMMARY | 2025-04-30 17:32 | XMS_ITS | Encounter Summary ---
Author Organization [facility] Address [address] [place] [address] Phone Care Team Providers Care Lace Sewer Name Role Phone Len Dinh MD Primary Care Provider [phone] Encounter Details Date Type Department Care Team (Latest Contact Info) Description 10/11/2023 Ancillary Orders [facility], X-Ray - [facility] [address] [place] [address] Dimitrios Black, DO [address] [place] [address] [email or web address] Primary osteoarthritis of left hip (Primary Dx) Social History Tobacco Use Types [...] Description 05/21/2025 8:00 AM EST Office Visit [facility] [address] [facility] 3rd Floor, [address] [place] [address] Bj Luis MD 22 [facility], [address] [place] [address] [email or web address] documented as of this encounter Results * XR HIP 2 VW LEFT PLUS PELVIS (10/11/2023 3:24 PM EDT) Anatomical Region Laterality Modality Hip, Pelvis Computed Radiogr aphy 10/13/2023 2:12 PM EDT Impressions 10/13/2023 2:14 PM EDT Moderate to severe left and moderate right hip osteoarthritis. No significant change from 07/13/2022. Narrative 10/13/2023 2:14 PM EDT XR HIP 2 VW LEFT PLUS PELVIS Referring clinician's provided indication for this examination in Epic: Osteoarthritis REQUESTED INDICATION: Osteoarthritis COMPARISON: XR HIP 2 VW LEFT PLUS PELVIS FINDINGS: PELVIS: Pelvic ring intact. No displaced fracture. Degenerative changes of the lower lumbar spine, sacroiliac joints, and pubic symphysis. Gluteal enthesopathy at the iliac crests. Arteries calcified. Surgical clips overlying the pelvis. RIGHT HIP: Moderate hip joint space narrowing with subchondral sclerosis and bony proliferative change. LEFT HIP: Moderate to severe hip joint space narrowing with subchondral sclerosis and bony proliferative change. Soft tissue mineralization raises the possibility of chondrocalcinosis and CPPD arthropathy. Procedure Note Raissa Adame MD - 10/13/2023 XR HIP 2 VW LEFT PLUS PELVIS Referring clinician's provided indication for this examination in Epic:Osteoarthritis REQUESTED INDICATION: Osteoarthritis COMPARISON: XR HIP 2 VW LEFT PLUS PELVIS FINDINGS: PELVIS: Pelvic ring intact. No displaced fracture. Degenerative changes ofthe lower lumbar spine, sacroiliac joints, and pubic symphysis. Glutealenthesopathy at the iliac crests. Arteries calcified. Surgical clipsoverlying the pelvis. RIGHT HIP: Moderate hip joint space narrowing with subchondral sclerosisand bony proliferative change. LEFT HIP: Moderate to severe hip joint space narrowing with subchondralsclerosis and bony proliferative change. Soft tissue mineralization raisesthe possibility of chondrocalcinosis and CPPD arthropathy. IMPRESSION: Moderate to severe left and moderate right hip osteoarthritis. No significant change from 07/13/2022. us Dimitrios Black DO IMG XR PELVIS Final Result documented in this encounter Visit Diagnoses Diagnosis Primary osteoarthritis of left hip- Primary Primary osteoarthritis of left hip documented in this encounter Care Teams Lace Sewer Relationship Specialty Start Date End Date Len Dinh MD [address] [place] [phone] [email or web address] PCP - General Internal Medicine 02/08/23 documented as of this encounter Additional Source Comments The information contained in this document represents components of the legal health record. It is not the complete legal health record.[facility]
--- OUTSIDE RECORDS SUMMARY | 2025-04-30 17:32 | XMS_ITS | Encounter Summary ---
Author Organization [facility] Address [address] [facility] [address] [place] [address] Phone Care Team Providers Care Broomcorn Grader Name Role Phone Len Dinh MD Primary Care Provider [phone] Len Dinh MD Primary Care Provider [phone] Encounter Details Date Type Department Care Team (Late st Contact Info) Description 07/13/2022 Ancillary Orders [facility], X-Ray - [facility] [address] [place] [address] Dimitrios Black, DO [address] [place] [address] [email or web address] Radiculopathy, lumbar region; Pain in left hip Social History Tobacco Use Types Packs/Day Years [...] Description 05/21/2025 8:00 AM EST Office Visit [facility] [address] [place] [address] 3rd Floor, [address] [place] [address] Bj Luis MD [address] [place] [address], [address] [place] [address] [email or web address] documented as of this encounter Results * XR HIP 2 VW LEFT PLUS PELVIS (07/13/2022 4:39 PM EST) Anatomical Region Laterality Modality Hip, Pelvis Computed Radiogr aphy 07/14/2022 12:0 4 AM EST Impressions 07/14/2022 12:05 AM EST Moderate to severe left and moderate right hip osteoarthritis. Narrative 07/14/2022 12:05 AM EST XR HIP 2 VW LEFT PLUS PELVIS COMPARISON: Same day x-ray lumbar spine FINDINGS: PELVIS: Pelvic ring intact. No displaced fracture. Degenerative changes of the lower lumbar spine, sacroiliac joints, and pubic symphysis. Arteries calcified. RIGHT HIP: Moderate right hip joint space narrowing with subchondral sclerosis. LEFT HIP: Moderate to severe left hip joint space narrowing with subchondral sclerosis and bony proliferative change. Soft tissue mineralization raises the possibility of chondrocalcinosis. Procedure Note Raissa Adame MD - 07/14/2022 XR HIP 2 VW LEFT PLUS PELVIS COMPARISON: Same day x-ray lumbar spine FINDINGS: PELVIS: Pelvic ring intact. No displaced fracture. Degenerative changes ofthe lower lumbar spine, sacroiliac joints, and pubic symphysis. Arteriescalcified. RIGHT HIP: Moderate right hip joint space narrowing with subchondralsclerosis. LEFT HIP: Moderate to severe left hip joint space narrowing withsubchondral sclerosis and bony proliferative change. Soft tissuemineralization raises the possibility of chondrocalcinosis. IMPRESSION: Moderate to severe left and moderate right hip osteoarthritis. Dimitrios Black DO IMG XR PELVIS Final Result * XR LUMBOSACRAL SPINE 4 OR MORE VIEWS (07/13/2022 4:39 PM EST) Anatomical Region Laterality Modality L-spine Computed Radiogr aphy 07/14/2022 12:0 2 AM EST Impressions 07/14/2022 12:04 AM EST Moderate to severe multilevel lumbar spine degenerative change, most pronounced at L4-5 and L5-S1. Narrative 07/14/2022 12:04 AM EST XR LUMBOSACRAL SPINE 4 OR MORE VIEWS COMPARISON: None FINDINGS: ALIGNMENT: Reversal of the lumbar lordosis centered at L1. VERTEBRAE: Vertebral body heights preserved. DISCS: Disc height loss and endplate sclerosis and marginal osteophytes at all levels. FACETS: Facet arthropathy L2-S1. PARASPINAL SOFT TISSUES: Surgical clips in the pelvis and pelvic sidewalls. Hip joint space loss bilaterally. Procedure Note Raissa Adame MD - 07/14/2022 XR LUMBOSACRAL SPINE 4 OR MORE VIEWS COMPARISON: None FINDINGS: ALIGNMENT: Reversal of the lumbar lordosis centered at L1. VERTEBRAE: Vertebral body heights preserved. DISCS: Disc height loss and endplate sclerosis and marginal osteophytes atall levels. FACETS: Facet arthropathy L2-S1. PARASPINAL SOFT TISSUES: Surgical clips in the pelvis and pelvicsidewalls. Hip joint space loss bilaterally. IMPRESSION: Moderate to severe multilevel lumbar spine degenerative change, mostpronounced at L4-5 and L5-S1. Dimitrios Black DO IMG XR SPINE Final Result documented in this encounter Visit Diagnoses Diagnosis Radiculopathy, lumbar region Thoracic or lumbosacral neuritis or radiculitis, unspecified Pain in left hip Radiculopathy, lumbar region Thoracic or lumbosacral neuritis or radiculitis, unspecified Pain in left hip documented in this encounter Care Teams Broomcorn Grader Relationship Specialty Start Date End Date Len Dinh MD PCP - General Internal Medicine 11/15/20 02/07/23 Len Dinh MD [address] [place] [phone] [email or web address] PCP - General Internal Medicine 02/08/23 documented as of this encounter Additional Source Comments The information contained in this document represents components of the legal health record. It is not the complete legal health record.[facility]
--- OUTSIDE RECORDS SUMMARY | 2025-04-30 17:32 | XMS_ITS | Encounter Summary ---
Author Organization [facility] Address [address] [place] [address] Phone Care Team Providers Care Chief Construction Inspector Name Role Phone Len Dinh MD Primary Care Provider [phone] Encounter Details Date Type Department Care Team (Late st Contact Info) Description 01/14/2024 Procedure Pass [facility], Ct Scan - [address] [address] Social History Tobacco Use Types Packs/Day Years [...] Description 05/21/2025 8:00 AM EST Office Visit [facility] [address] [place] [address] 3rd Floor, [address] [place] [address] Bj Luis MD [address] [facility], [address] [place] [address] [email or web address] documented as of this encounter Visit Diagnoses Not on filedocumented in this encounter Care Teams Chief Construction Inspector Relationship Specialty Start Date End Date Len Dinh MD [address] [place] [phone] [email or web address] PCP - General Internal Medicine 02/08/23 documented as of this encounter Additional Source Comments The information contained in this document represents components of the legal health record. It is not the complete legal health record.[facility]
--- OUTSIDE RECORDS SUMMARY | 2025-04-30 17:32 | XMS_ITS | Encounter Summary ---
Author Organization [facility] Address [address] [place] [address] Phone Care Team Providers Care Guidance Secretary Name Role Phone Len Dinh MD Primary Care Provider [phone] Encounter Details Date Type Department Care Team (Late st Contact Info) Description 11/28/2023 Procedure Pass [facility], Ct Scan - [address] [address] Social History Tobacco Use Types Packs/Day Years [...] Description 05/21/2025 8:00 AM EST Office Visit [facility] [address] [place] [address] 3rd Floor, [address] [place] [address] Bj Luis MD [address] [facility], [address] [place] [phone] [email or web address] documented as of this encounter Visit Diagnoses Not on filedocumented in this encounter Care Teams Guidance Secretary Relationship Specialty Start Date End Date Len Dinh MD [address] [place] [phone] [email or web address] PCP - General Internal Medicine 02/08/23 documented as of this encounter Additional Source Comments The information contained in this document represents components of the legal health record. It is not the complete legal health record.[facility]
--- OUTSIDE RECORDS SUMMARY | 2025-04-30 17:32 | XMS_ITS | Encounter Summary ---
Author Organization [facility] Address [address] [facility] [address] [place] [address] Phone Care Team Providers Care Fry Cook Name Role Phone Len Dinh MD Primary Care Provider [phone] Len Dinh MD Primary Care Provider [phone] Len Dinh MD Primary Care Provider [phone] Reason for Referral * MRI/CAT Scan - Closed Specialty Diagnoses / Procedures Referred By Contac t Referred To Contact Radiology Diagnoses Right foot pain Procedures CT Foot (Right) Bam Lozano MD Phone: tel: fax: Referral ID Status Reason Start Date Expiration Date Visits Re quested Visits Authorized [id number] Closed 05/22/2020 11/18/2020 1 1 Encounter Details Date Type Department Care Team (Late st Contact Info) Description 05/22/2020 Ancillary Orders Virtual Department [address] [place] [address] Bam Lozano MD [address] [place] [phone] Right foot pain Social History Tobacco Use Types Packs/Day Years [...] Description 05/21/2025 8:00 AM EST Office Visit [facility] [address] [facility] [address]rd Floor, [address] [place] [address] Bj Luis MD [address] [facility], [address] [place] [address] documented as of this encounter Results * CT FOOT WITHOUT CONTRAST (RIGHT) (05/29/2020 3:13 PM EST) Anatomical Region Laterality Modality Foot Right Computed Tomogra phy 05/29/2020 5:06 PM EST Impressions 05/29/2020 5:23 PM EST 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 Short screw traversing the talus is broken. Narrative 05/29/2020 5:23 PM EST EXAM: CT FOOT WITHOUT CONTRAST (RIGHT) COMPARISON: None HISTORY: Right foot [id number], Eval talonavicutler Additional information according to the Epic notes: None TECHNIQUE: CT of the right foot was obtained without administration of intravenous contrast. Coronal and sagittal reformats and 3-D reconstructions were obtained. Automated exposure control utilized. FINDINGS: There are screws traversing the talocalcaneal and talonavicular joints, which appear intact and without significant surrounding lucency. One of the screws attached to the plate placed along the talonavicular joint is broken (9:20). There are sclerotic and cystic changes as well as marginal osteophytes at the level of the ununited talonavicular joint. Early fusion noted at the subtalar joint. Mild degenerative changes with cystic changes at the additional joints. No destructive bone lesions. No acute fractures. Chronic deformity of the 5th metatarsal likely represents healed fracture. No subluxations. Overlying soft tissues are grossly unremarkable. Procedure Note Gerard Roberts MD - 05/29/2020 EXAM: CT FOOT WITHOUT CONTRAST (RIGHT) COMPARISON: None HISTORY: Right foot [id number], Eval talonavicutler Additional information according to the [facility] notes: None TECHNIQUE: CT of the right foot was obtained without administration ofintravenous contrast. Coronal and sagittal reformats and 3-Dreconstructions were obtained. Automated exposure control utilized. FINDINGS: There are screws traversing the talocalcaneal and talonavicular joints,which appear intact and without significant surrounding lucency. One ofthe screws attached to the plate placed along the talonavicular joint isbroken (9:20). There are sclerotic and cystic changes as well as marginal osteophytes atthe level of the ununited talonavicular joint. Early fusion noted at thesubtalar joint. Mild degenerative changes with cystic changes at theadditional joints. No destructive bone lesions. No acute fractures.Chronic deformity of the 5th metatarsal likely represents healed fracture.No subluxations. Overlying soft tissues are grossly unremarkable. 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 Short screwtraversing the talus is broken. Bam Lozano MD IMG CT EXTREMITY Fin al Result documented in this encounter Visit Diagnoses Diagnosis Right foot pain Pain in soft tissues of limb Right foot pain Pain in soft tissues of limb documented in this encounter Care Teams Fry Cook Relationship Specialty Start Date End Date Len Dinh MD PCP - General Internal Medicine 04/09/17 11/14/20 Len Dinh MD PCP - General Internal Medicine 11/15/20 02/07/23 Len Dinh MD [address] [place] [phone] [email or web address] PCP - General Internal Medicine 02/08/23 documented as of this encounter Additional Source Comments The information contained in this document represents components of the legal health record. It is not the complete legal health record.[facility]
--- OUTSIDE RECORDS SUMMARY | 2025-04-30 17:32 | XMS_ITS | Encounter Summary ---
Author Organization [facility] Address [address] [facility] [address] [place] [address] Phone Care Team Providers Care Engraver Wood Name Role Phone Unknown, Unknown Primary Care Provider Len Gong MD Primary Care Provider [phone] Len Dinh MD Primary Care Provider [phone] Len Dinh MD Primary Care Provider [phone] Reason for Referral * MRI/CAT Scan - Closed Specialty Diagnoses / Procedures Referred By Contac t Referred To Contact Radiology Diagnoses Chest pain, unspecified type Procedures NC Myocardial Perfusion Exercise Multiple NC Myocardial Perfusion Stress Single Len Dinh MD Phone: tel: fax: [email or web address] Referral ID Status Reason Start Date Expiration Date Visits Re quested Visits Authorized [id number] Closed 03/31/2017 05/30/2017 1 1 Encounter Details Date Type Department Care Team (Late st Contact Info) Description 03/31/2017 Ancillary Orders Virtual Department [address] [place] [phone] Len Dinh MD [address] [place] [phone] [email or web address] Chest pain, unspecified type Social History Tobacco [...] Description 05/21/2025 8:00 AM EST Office Visit [facility] [address] [place] [address] [address]rd Floor, [address] [place] [address] Bj Luis MD [address] [facility], [address] [place] [address] [email or web address] documented as of this encounter Results * NC Myocardial Perfusion Exercise Multiple (04/09/2017 11:00 AM EST) Anatomical Region Laterality Modality Heart, Vascular Nuclear Medicine 04/09/2017 3:13 PM EST Impressions 04/09/2017 3:22 PM EST Multifocal areas of ischemia as described. Ejection fraction = 51%. Results discussed with Dr. Rosenberg. POS -[id number] Narrative 04/09/2017 3:22 PM EST HISTORY: Chest pain COMPARISON: None DOSE: Rest dose 10.2 mCi Tc-99m sestamibi, Stress dose 30.1 mCi Tc-99m sestamibi FINDINGS: Patient exercised on a Emmanuel protocol for 5 minutes achieving a maximal heart rate of 137 bpm which is 89% of the maximal predicted heart rate. Study terminated due to chest pain and dyspnea. EKG changes suspicious for ischemia were reported. Large severe reversible perfusion defect involving the septum and apex. There is also involvement of the anteroseptal region. Large predominantly fixed inferior perfusion defect with minimal reversibility. There is corresponding severe hypokinesis in these areas. Abnormal ejection fraction calculated at 51%. Procedure Note Gauri Hager MD - 04/09/2017 HISTORY: Chest pain COMPARISON: None DOSE: Rest dose 10.2 mCi Tc-99m sestamibi, Stress dose 30.1 mCi Tc-99msestamibi FINDINGS: Patient exercised on a Emmanuel protocol for 5 minutes achieving a maximalheart rate of 137 bpm which is 89% of the maximal predicted heart rate.Study terminated due to chest pain and dyspnea. EKG changes suspiciousfor ischemia were reported. Large severe reversible perfusion defect involving the septum and apex.There is also involvement of the anteroseptal region. Large predominantlyfixed inferior perfusion defect with minimal reversibility. There iscorresponding severe hypokinesis in these areas. Abnormal ejectionfraction calculated at 51%. IMPRESSION: Multifocal areas of ischemia as described. Ejection fraction = 51%. Results discussed with Dr. Rosenberg. POS -[id number] Len Dinh MD CV NM CARDIAC Final Result documented in this encounter Visit Diagnoses Diagnosis Chest pain, unspecified type Chest pain, unspecified type documented in this encounter Care Teams Engraver Wood Relationship Specialty Start Date End Date Unknown, Unknown, MD PCP - General 03/29/17 04/08/17 Len Dinh MD [email or web address] PCP - General Internal Medicine 04/09/17 11/14/20 Len Dinh MD [email or web address] PCP - General Internal Medicine 11/15/20 02/07/23 Len Dinh MD [address] [place] [phone] [email or web address] PCP - General Internal Medicine 02/08/23 documented as of this encounter Additional Source Comments The information contained in this document represents components of the legal health record. It is not the complete legal health record.[facility]
--- OUTSIDE RECORDS SUMMARY | 2025-04-30 17:32 | XMS_ITS | Encounter Summary ---
Author Organization [facility] Address [address] [facility] [address] [place] [address] Phone Care Team Providers Care Chief Design Drafter Name Role Phone Len Dinh MD Primary Care Provider [phone] Len Dinh MD Primary Care Provider [phone] Encounter Details Date Type Department Care Team (Latest Contact Info) Description 07/15/2022 Transcribe Orders Virtual Department [address] [place] [address] Dimitrios Black, DO [address] [place] [address] [email or web address] Radiculopathy, lumbar region (Primary Dx) Social History Tobacco Use Types [...] Description 05/21/2025 8:00 AM EST Office Visit [facility] [address] [place] [address] [address]rd Floor, [address] [place] [address] Bj Luis MD [address], [address] [place] [address] [email or web address] documented as of this encounter Visit Diagnoses Diagnosis Radiculopathy, lumbar region- Primary Thoracic or lumbosacral neuritis or radiculitis, unspecified documented in this encounter Care Teams Chief Design Drafter Relationship Specialty Start Date End Date Len Dinh MD [email or web address] PCP - General Internal Medicine 11/15/20 02/07/23 Len Dinh MD [address] [place] [phone] [email or web address] PCP - General Internal Medicine 02/08/23 documented as of this encounter Additional Source Comments The information contained in this document represents components of the legal health record. It is not the complete legal health record.[facility]
== END 2025-04-30 14:42 | disposition home or self-care (01) ==
LOC: HO.ENCR 14:04
PROVIDERS: PCP Internal Medicine Endocrinology, Diabetes & Metabolism; Visit Provider Internal Medicine Endocrinology, Diabetes & Metabolism
DX: E83.52 Hypercalcemia (principal)
CPT/HCPCS: 99204

== ENCOUNTER → 2025-04-30 14:04 | Outpatient (BNVA) | payer MEDICARE, OTHER, SELFPAY | PROVIDERS: PCP Internal Medicine Endocrinology, Diabetes & Metabolism; Visit Provider Internal Medicine Endocrinology, Diabetes & Metabolism | DX: E83.52 Hypercalcemia (principal); Z79.82 Long term (current) use of aspirin | CPT/HCPCS: 99202 ==